=== PATIENT | male | born 1960 | race Caucasian/White ===

== ENCOUNTER 2017-04-17 08:41 | Emergency (ER) | payer OTHER | END 2017-04-17 09:59 | disposition home or self-care (01) | LOC: SED 08:41 | DX: J20.9 Acute bronchitis, unspecified (principal); F17.200 Nicotine dependence, unspecified, uncomplicated | CPT/HCPCS: 99283 ==

== ENCOUNTER 2017-05-06 22:15 | Emergency (ER) | payer OTHER ==
[~2017-05-06] VITALS: Ht 172.7 cm; Wt 68.9 kg
[2017-05-08] MEDS ORDERED: NO MEDICATIONS (19:12)
== END 2017-05-07 00:40 | disposition home or self-care (01) ==
LOC: SED 22:15
DX: L02.415 Cutaneous abscess of right lower limb (principal); L02.511 Cutaneous abscess of right hand; R03.0 Elevated blood-pressure reading, without diagnosis of hypertension; F17.210 Nicotine dependence, cigarettes, uncomplicated; R06.2 Wheezing; Z23 Encounter for immunization
CPT/HCPCS: 36415; 90471; 90715; 94640; 96365; 99283

== ENCOUNTER 2017-05-08 18:53 | Emergency (ER) | payer OTHER ==
[~2017-05-08] VITALS: Ht 172.7 cm; Wt 68.9 kg
[2017-05-08] MEDS ORDERED: NO MEDICATIONS (19:12)
[2017-05-08 19:49] LABS: BASOPHIL# 0.1 X10e3 (0-0.3); BASOPHIL% 0.7 % (0-2.5); EOSINOPHIL# 0.1 X10e3 (0-0.7); EOSINOPHIL% 1.3 % (0.0-7.0); HEMATOCRIT 38.3 % (38.0-50.0); HEMOGLOBIN 13.3 gm/dL (13.0-16.0); LYMPHOCYTE# 0.9 X10e3 (1.0-3.5); LYMPHOCYTE% 7.9 % (17.0-45.0); MEAN CELL VOLUME 94.7 FL (83-96); MEAN CORPUSCULAR HEMOGLOBIN 32.8 PG (28-34); MEAN CORPUSCULAR HGB CONC 34.7 g/dL (30-36); MEAN PLATELET VOLUME 7.4 FL (6.5-11.5); MONOCYTE% 9.4 % (3.0-12.0); NEUTROPHIL# 8.8 X10e3 (1.5-7.1); NEUTROPHIL% 80.7 % (40-75); PLATELET COUNT 270 X10e3 (140-420); RED BLOOD COUNT 4.05 X10e (3.90-5.60); RED CELL DISTRIBUTION WIDTH 12.5 % (11.0-15.5)
[2017-05-08 19:51] LABS: DIFF IND NO
[2017-05-08 19:55] LABS: INR 1.4; PROTHROMBIN TIME (PATIENT) 16.3 SECONDS (9.5-12.4)
[2017-05-08 20:02] LABS: BUN/CREATININE RATIO 15.55; CALCIUM SERUM 8.5 mg/dL (8.4-10.2); CREATININE SERUM 0.9 mg/dL (0.6-1.4); GLOM FILT RATE Estimated 95.1 mL/min (>60); PARTIAL THROMBOPLASTIN TIME 27.2 SECONDS (25.6-38.1); POTASSIUM 3.7 mmol/L (3.5-5.1)
== END 2017-05-08 21:56 | disposition home or self-care (01) ==
LOC: SED 18:53
PROVIDERS: Emergency Medicine
DX: L02.511 Cutaneous abscess of right hand (principal); L02.414 Cutaneous abscess of left upper limb; L02.415 Cutaneous abscess of right lower limb; I10 Essential (primary) hypertension; L03.115 Cellulitis of right lower limb
CPT/HCPCS: 10061; 36415; 80048; 85025; 85610; 85730; 87040; 87070; 87077; 87186; 87205; 96365; 96366; 99283; J3370

== ENCOUNTER 2017-05-10 20:21 | Emergency (ER) | payer OTHER ==
[~2017-05-10] VITALS: Ht 172.7 cm; Wt 68.9 kg
[~2017-05-10 20:21] MED LIST: NO MEDICATIONS
[2017-05-10] MEDS ORDERED: ANTIBIOTICS (20:29)
== END 2017-05-10 21:13 | disposition home or self-care (01) ==
LOC: SED 20:21
DX: Z48.01 Encounter for change or removal of surgical wound dressing (principal); R03.0 Elevated blood-pressure reading, without diagnosis of hypertension; F17.200 Nicotine dependence, unspecified, uncomplicated
CPT/HCPCS: 99282